=== PATIENT | female | born 1950 | race Caucasian/White ===

== ENCOUNTER 2021-03-15 07:56 | Outpatient (CLI) | payer MEDICARE, SELFPAY ==
--- NOTE | 2021-03-15 09:18 | ECG_ITS ---
Measurements Intervals [place] Rate: 53 P: 68 [place]: 145 QRS: 63 QRSD: 92 T: 50 QT: 411 QTc: 389 Interpretive Statements SINUS BRADYCARDIA BASELINE ARTIFACT- I, II, III, AVR, AVL, AVF BORDERLINE ECG Electronically Signed On 03-15-2021 9:56:53 CDT by You Flood D.O.
[2021-03-15 09:59] LABS: Add Urine Microscopic? YES; Appearance Urine Clear (Clear); Bilirubin Urine Negative (Negative); Blood Urine Negative (Negative); Color Urine Yellow (Yellow); Glucose Urine UA Negative (Negative); Ketones Urine Negative (Negative); Leukocyte Esterase Ur Negative LEU/UL (Negative); Mucus Urine Few /lpf; Nitrate Urine Negative (Negative); Protein Urine 1+ mg/dL (Negative); Specific Grav Ur 1.023 (1.001-1.035); Squamous Epithelial Cell Urine Few /hpf (Few); Urobilinogen Urine Negative mg/dL (<2.0); WBC Urine 0-3 /hpf
[2021-03-15 10:00] LABS: INR 0.9; Prothrombin Time 12.4 Seconds (11.1-14.7)
[2021-03-15 10:01] LABS: Partial Thromboplastin Time 27.5 SECONDS (22.3-36.8)
[2021-03-15 11:25] LABS: Urine Cotinine NEGATIVE
[2021-03-15 12:34] LABS: Hemoglobin A1C 5.5 % (<5.7)
== END 2021-03-15 07:57 | disposition home or self-care (01) ==
LOC: ANHSURGERY 08:05
PROVIDERS: PCP Family Medicine; Visit Provider Orthopaedic Surgery
DX: M17.12 Unilateral primary osteoarthritis, left knee (principal); Z01.818 Encounter for other preprocedural examination; R94.31 Abnormal electrocardiogram [ECG] [EKG]
CPT/HCPCS: 80307; 81001; 83036; 85610; 85730; 87081; 93005

== ENCOUNTER → 2021-03-27 00:25 | Outpatient (CLI) | payer MEDICARE, SELFPAY ==
[2021-03-27 19:35] LABS: SARS-CoV-2 RNA PCR Negative
== END ==
PROVIDERS: PCP Family Medicine; Visit Provider Orthopaedic Surgery
DX: Z01.812 Encounter for preprocedural laboratory examination (principal); Z20.822 Contact with and (suspected) exposure to COVID-19
CPT/HCPCS: C9803; U0003; U0005

== ENCOUNTER 2021-03-30 01:19 | Day surgery (SDC) | payer MEDICARE, SELFPAY ==
[2021-03-15 08:32] VITALS: BP 126/75; PULSE 56; RESP 18; TEMP 36.7; O2SAT 97; BMI 24.3
--- NOTE | 2021-03-29 12:59 | WPDANESEPPF ---
Anes - Initial Pre Proc Eval Procedure: Operation Date: 03/30/21 07:30 Proposed Procedures p Left Total Knee Arthroplasty - Ambrose Elizalde MD Date/Time: 03/29/21 12:59 Surgeon: Ambrose Elizalde MD Pre Op Diagnosis: Left knee djd Patient Data Age: 71 Gender: F Height: 1.6 m Weight: 62.2 kg Last Vital Signs Temp 36.7 C 03/15/21 08:32 Pulse 56 L 03/15/21 08:32 Resp 18 03/15/21 08:32 BP 126/75 03/15/21 08:32 Pulse Ox 97 03/15/21 08:32 Allergies Allergy/AdvReac Type Severity Reaction Status Date / Time No Known Allergies Allergy Verified 03/30/21 06:47 Home Medications Medication Instructions Recorded Confirmed Type Saccharomyces boulardii [Daily 1 cap PO DAILY 12/25/20 03/15/21 History Probiotic (S. boulardii)] aspirin 81 mg tablet,delayed 81 mg PO DAILY 12/25/20 03/15/21 History release bupropion HCl 300 mg 24 hr tablet, 300 mg PO QAM 12/25/20 03/15/21 History extended release duloxetine 30 mg capsule,delayed 30 mg PO DAILY 12/25/20 03/15/21 History release duloxetine 60 mg capsule,delayed 60 mg PO QAM 12/25/20 03/15/21 History release melatonin 10 mg capsule 10 mg PO QHS 12/25/20 03/15/21 History trazodone 100 mg tablet 200 mg PO QHS 12/25/20 03/15/21 History chlorhexidine gluconate 4 % 1 applic TOPICAL ONCE #237 ml 12/30/20 03/15/21 Rx topical liquid cholecalciferol (vitamin D3) 25 mcg PO DAILY 03/15/21 03/15/21 History cyanocobalamin (vitamin B-12) 500 mcg PO DAILY 03/15/21 03/15/21 History diphenhydramine HCl [Benadryl] 25 mg PO Q6H PRN 03/15/21 03/15/21 History ferrous sulfate 27 mg PO DAILY 03/15/21 03/15/21 History latanoprost 1 drp EACH EYE DAILY 03/15/21 03/15/21 History loperamide [Imodium] 2 mg PO Q6H PRN 03/15/21 03/15/21 History timolol maleate 1 drp EACH EYE DAILY 03/15/21 03/15/21 History Patient hx anesthesia problems: none Family hx anesthesia problems: none Results Review: All pre-operative results and documents have been reviewed as part of the pre-operative evaluation. PMFSH Past Medical History Medical History Anxiety Arthritis Depression Left knee DJD Left knee pain Osteoporosis Smoking Surgical History Surgical History History of total right knee replacement Family History Family History Other Heart disease Social History Social History Smoking packs per day: 1.25 Smoking cigarettes per day: 25.0 Years smoked: 53 Smoking pack-years: 66.25 Smoking status: Former smoker Tobacco type: cigarettes Smoking end date: 02/10/21 Alcohol intake: former Alcohol use details: FORMER HEAVY DRINKER,QUIT 1999 Substance use: current Substance use type: marijuana Other substance usage details: SMOKE MARIJUANA X5-6/DAY Living arrangements: with family Additional living arrangements comments: BOYFRIEND Gender identity (if verbalized by the patient): Female Spiritual care concerns: No Anes - Eval Final PreProcedure Day of Procedure 03/29/21 12:59 Patient weight: normal Heart: regular rate and rhythm Lungs: clear to auscultation and normal air movement Airway: Mallampati scale class 1 Neurological: alert and oriented Last oral intake: >/= 8 hours ASA classification: III Emergent: no Anesthetic plan: proceed Anesthesia type and monitoring: general LMA and standard monitoring Results Review: All pre-operative results and documents have been reviewed as part of the pre-operative evaluation. Informed Consent: The patient's anesthetic plan and its attendant risks and benefits were discussed with the patient/family/POA. Questions were solicited and answers provided to the satisfaction of the patient/family/POA.
--- NOTE | 2021-03-29 13:01 | WPDANESPNB ---
Anes - Peripheral Nerve Block Date/Time: 03/29/21 13:01 I have discussed with the patient/family/POA the placement of a peripheral nerve block for post-operative pain management, including associated risks, benefits, complications, and side effects. Alternative methods of post-operative analgesia were detailed. Questions were solicited and answers provided to the satisfaction of the patient/family/POA. Time-Out: A pre-procedural Time-Out was completed immediately before starting the procedure and confirmed: Patient Identification, Site, Procedure, Patient Position and the Availability of Requisite Equipment. Clinical Indications: Acute post-operative pain management requested by the operative surgeon. Nerve Block Insertion Note Anes-nerve block: adductor canal left Patient position: supine Skin prep: chlorhexidine Needle: 22 gauge, stimulating, insulated echogenic needle. Needle length: 80 mm Technique: ultrasound Injectate: bupivacaine 0.5% with epi 5 mcg/ml (30cc - no epi) Observations: tolerated well Complications: none Procedure start time:: 728 Procedure end time:: 731
[2021-03-30] VITALS (10 sets, daily range): BP systolic 108–159; BP diastolic 45–77; PULSE 51–61; RESP 12–16; TEMP 36.3–36.9; O2SAT 98–100
--- NOTE | ~2021-03-30 | XR_ITS ---
EXAMINATION: XR knee LT 2V DATE: 03/30/2021 10:29 INDICATION: Postoperative evaluation following left total knee arthroplasty. TECHNIQUE: Anteroposterior and lateral views of the left knee were obtained. COMPARISON: 12/25/2020 FINDINGS: Left total knee arthroplasty without patellar resurfacing appears well seated and in near anatomic al ignment. No fractures identified. Expected postoperative subcutaneous, intramedullary and intra-cassie cular gas. IMPRESSION: 1. Left total knee arthroplasty, negative for postoperative purposes. Reviewed, dictated and finalized at location B.
[2021-03-30] MEDS: LACTATED RINGERS 1,000 ML 30 ML IV CONT ×2 (06:38→10:02)
[2021-03-30] MEDS: ACETAMINOPHEN 500 MG TABLET 1000 MG PO (06:41)
[2021-03-30] MEDS: TRANEXAMIC ACID 1,000MG/ISO100 1,000 MG/100 ML BAG 200 MG IVPB (06:42)
--- NOTE | 2021-03-30 07:32 | WPDHPUPDATE1 ---
History and Physical Update Update Date/Time: 03/30/21 07:32 History and Physical has been reviewed, including an updated exam of the patient. There are NO changes in the patient's condition. Risks, benefits, and alternatives have been discussed and questions answered. Patient agrees to proceed with procedure.
[2021-03-30] MEDS: ceFAZolin 2 GM/D5W 50 ML 2 GM/50 ML BAG IVPB (07:39)
[2021-03-30] MEDS: GENTAMICIN BONE CEMENT REFOBACIN 1 EACH TOPICAL (08:11)
[2021-03-30] MEDS: TRANEXAMIC ACID 1,000 MG/10 ML AMPUL 1000 MG IV PUSH (09:20)
[2021-03-30] MEDS: fentaNYL CITRATE INJ (*CRX) 100 MCG/2 ML VIAL 25 MCG IV PUSH ×8 (10:08→10:50)
--- NOTE | 2021-03-30 10:14 | P.OP_ITS ---
Procedure Note - Detailed Date of Procedure 03/30/21 Pre-op Diagnosis Left knee djd Post-op Diagnosis same Procedure Performed L TKA Surgeon Ambrose Elizalde MD Anesthesia general Description of Procedure THE LEFT KNEE WAS PREPPED AND DRAPED IN THE STERILE FASHION. THERE WAS A 5 DEGREE FLEXION CONTRACTURE. A MIDLINE SKIN INCISION WAS MADE. A MEDIAL PARAPATELLAR ARTHROTOMY WAS MADE. THE PATELLA WAS EVERTED. THERE WAS TRICOMPARTMENT DJD. THERE WAS MINIMAL PATELLA DJD. AN INTRAMEDULLARY JUAN WAS PLACED IN THE FEMUR. A DISTAL FEMORAL CUT WAS MADE IN 5 DEGREES OF VALGUS REMOVING APPROXIMATELY 9 MM OF BONE FROM THE DISTAL FEMUR. THE FEMUR WAS SIZED TO 65. A 57.5 FEMORAL CUTTING BLOCK WAS PLACED IN 3 DEGREES OF EXTERNAL ROTATION AND IN ALIGNMENT WITH CRIS'S LINE AND THE TRANSEPICONDYLAR AXIS. ANTERIOR POSTERIOR AND CHAMFER CUTS WERE MADE. THE CUTS WERE EXCELLENT. NEXT AN INTRAMEDULLARY CUTTING GUIDE WAS PLACED IN THE TIBIA. A TRANS TIBIAL CUT WAS MADE ALONG THE LONG AXIS OF THE TIBIA. APPROXIMATELY 10 MM OF BONE WAS REMOVED FROM THE HIGH SIDE OF THE TIBIA. THE TIBIA WAS THEN PLANED TO A SMOOTH SURFACE. POSTERIOR FEMORAL OSTEOPHYTES WERE REMOVED FROM THE FEMORAL CONDYLES. A 67 TIBIAL TRIAL WAS PLACED IN ALIGNMENT WITH THE 1/3 MEDIAL ASPECT OF THE TIBIAL TUBERCLE. THEN A 57.5 FEMORAL TRIAL COMPONENT WAS PLACED. BOTH HAD EXCELLENT FITS. EVENTUALLY A 10 MM POLYETHYLENE TRIAL COMPONENT WAS PLACED. THE KNEE WAS TAKEN THROUGH A RANGE OF MOTION. THE KNEE CAME OUT TO FULL EXTENSION. THERE WAS NO ABNORMAL TILT TO THE PATELLA. THERE WAS GOOD A/P AND VARUS/VALGUS STABILITY. THERE WAS NO EXCESSIVE ROLL BACK WITH FLEXION. THE TRIAL COMPONENTS WERE REMOVED. THEN A 57.5 FEMORAL COMPONENT AND 67 TIBIAL COMPONENT WITH A 10 POLYETHYLENE COMPONENT WERE CEMENTED INTO PLACE. ONCE THE CEMENT WAS HARD THE KNEE WAS TAKEN THROUGH A ROM AGAIN AND FOUND TO BE STABLE WITH NO PATELLA TILT NO EXCESSIVE ROLL BACK WITH FLEXION AND GOOD STABILITY WITH COMPLETE AND FULL EXTENSION. THE KNEE WAS IRRIGATED WITH STERILE BETADINE AND WATER FOR ABOUT 3 MINUTES. THE BLEEDERS WERE CAUTERIZED. THE ARTHROTOMY WAS REPAIRED WITH NUMBER 1 VICRYL. THE SUB CUTANEOUS LAYER WITH 2-0 VICRYL AND THE SKIN WITH 2-0 QUIL AND DERMABOND. THE WOUND WAS WASHED AND A STERILE DRESSING WAS APPLIED. PAT IENT WAS EXTUBATED. Estimated Blood Loss -200.0 Pathology none sent Complications No immediate complications Condition stable Disposition PACU
[2021-03-30] MEDS: oxyCODONE HCL (*CRX) 5 MG TAB IR PO (11:31)
--- NOTE | 2021-03-30 12:38 | SUR.PHASEII ---
Waiting for Dr. Elizalde to finish up in OR and put in discharge orders. Patient worked with therapy but doesn't want a meal at this time.
--- NOTE | 2021-03-30 13:41 | SUR.PHASEII ---
1320: Patient is unhooked from this monitors and waiting for ride.
== END 2021-03-30 13:33 | disposition home or self-care (01) ==
PROVIDERS: PCP Family Medicine; Visit Provider Orthopaedic Surgery
PROC: (CPT 27447; principal; 2021-03-30 07:30)
DX: M17.12 Unilateral primary osteoarthritis, left knee (principal); G89.18 Other acute postprocedural pain; F41.8 Other specified anxiety disorders; M81.0 Age-related osteoporosis without current pathological fracture; Z87.891 Personal history of nicotine dependence; F12.90 Cannabis use, unspecified, uncomplicated
CPT/HCPCS: 27447; 64447; 36415; 73560; 86850; 86900; 86901; 97162; A9270; C1713; C1776; J0171; J0690; J2250; J2270; J2795; J3010; J7120